=== PATIENT | female | born 1940 | race Caucasian/White ===

== ENCOUNTER → 2016-09-12 | Day surgery (SDC) | payer OTHER, MEDICARE ==
[~2016-09-12] MED LIST: ALVESCO6.1 G1 IH; B COMPLEX1 CA1 PO; CALCIUM 5001 TAB PO; CALCIUM500 MG PO; FISH OIL 1,2001 EAC1 PO; FLAX SEED OIL1000 M1 PO; FLAX SEED OIL1000 M2 PO; FLOVENT7.9 GM; HIGH POTENCY B1 TAB PO; MAGNESIUM250 M1 PO; MULTI VITAMIN1 EACH PO; MULTIVITAMIN1 UDCAP PO; PEPCID PO; PEPCID40 MG PO; PROTONIX PO; VITAMIN D1000 UNI2 PO; VITAMIN D400 UNI2 PO; VITAMIN E400 UNI1 PO; VITAMIN E400 UNI2 PO
--- NOTE | ~2016-09-12 | OR ---
Unit #: [id number] #: [id number] Patient: CATHY CEBALLOS [id number] [address] [address] [id number] MR#: [id number] NAME: CATHY CEBALLOS ROOM: Date of Procedure: 09/12/2016 Admission Date: 09/12/2016 Surgeon: Delta Del Cid M.D. : 1940 Attending Physician: Delta Del Cid M.D. Primary Care Physician: Americo South M.D. OPERATIVE REPORT PROCEDURE PERFORMED Esophagogastroduodenoscopy with biopsies. INDICATIONS FOR PROCEDURE A 76-year-old female with history of Rothman esophagus, chronic GERD, undergoing evaluation. MEDICATIONS Monitored anesthesia. POSTOPERATIVE FINDINGS 1. Two small areas of Rothman's appearing mucosa. Biopsies taken. 2. Mild esophagitis along with moderate size hiatal hernia. 3. Chronic appearing gastritis, biopsies taken. 4. Normal duodenum and distal duodenum. PLAN 1. Continue PPI therapy. Avoid NSAIDs. 2. Follow up on pathology report. DESCRIPTION OF PROCEDURE The patient was explained of the procedure, risks, and benefits along with risks and benefits of anesthesia. She was brought to the endoscopy room. Propofol anesthesia was given. Bite block was placed. The scope was passed down the mouth into esophagus, stomach, duodenum, and distal duodenum. Findings as described. Biopsies taken. Gently, I pulled the scope out of the patient's mouth. She tolerated it well. Dictated by... Carri Benoit/dulce TD: 09/12/2016 22:53 JOB #: [id number] Unit #: [id number] #: [id number] Patient: CATHY CEBALLOS OPERATIVE REPORT Page 1 of 1 X Delta Del Cid MD X PROCEDURE OPERATIVE NOTE
== END | disposition home or self-care (01) ==
LOC: COPS 06:35
DX: K22.70 Barrett's esophagus without dysplasia (principal); K29.50 Unspecified chronic gastritis without bleeding; K21.0 Gastro-esophageal reflux disease with esophagitis; K44.9 Diaphragmatic hernia without obstruction or gangrene; Z88.1 Allergy status to other antibiotic agents; Z88.5 Allergy status to narcotic agent; Z88.6 Allergy status to analgesic agent; Z79.899 Other long term (current) drug therapy; Z98.890 Other specified postprocedural states; Z98.49 Cataract extraction status, unspecified eye; Z90.89 Acquired absence of other organs
CPT/HCPCS: 88305; 88312